=== PATIENT | male | born 1970 | race African-American/Black ===

== ENCOUNTER 2024-03-12 00:40 | Day surgery (SDC) | payer OTHER, SELFPAY ==
--- NOTE | 2024-03-05 13:41 | PC.NURSE ---
Report to the Doctors entrance to the right of the surgery green pavilion entrance located off [facility], at time _0945_ on date _[id number]_. Planned Procedure Time: _1145_. Time changes happen often and if your time is changed the preop area will call you the afternoon before. - You and your visitor will be asked to self-screen and do not enter if you have any COVID symptoms. - A mask is optional within the hospital at this time. Patients may have clear liquids (water, carbonated beverages, clear teas, apple juice) until 3 hours prior to surgery with a maximum of 20 ounces. - No food from midnight until time of surgery Take the following medications with a SIP of water the morning of surgery: ___Gabapentin, Duloxetine, and Ngjviyfvzaz-qzinxevudxtul-yvzggovjd DO NOT STOP ANY OF YOUR OTHER PRESCRIPTION MEDICATIONS PRIOR TO SURGERY ?EXCEPT THE FOLLOWING Medications to discontinue per physician None Date to take last dose Please no make-up, nail citizen of [place], hairspray, perfume, deodorant, or body powder the day of surgery. No jewelry (including any body piercings) or valuables the day of surgery, leave them at home. Please take a shower or bath the night before, or the morning of, surgery with an antibacterial soap. Wear comfortable, loose fitting clothing. - Jewelry must be removed prior to entering the operating room. Rings and piercings that are not removed may be cut off. - The hospital will not accept responsibility for valuables. - Please leave all valuables, including medications, at home the day of surgery. If you are going home after surgery, a licensed diesel pile driver operator must drive you home. - NO public transportation without another adult if you receive anesthesia. - We recommend that an adult stay with you for 24 hours following discharge. - We also recommend that you do not drive, make important decision, drink alcoholic beverages, or take any drugs that were not prescribed by your health care provider for at least 24 hours after your discharge time. Follow any additional instructions given to you from your surgeon. If you or anyone in your household have experienced Covid symptoms in the past week, please notify your surgeon or the nurse liaison at the phone number below for possible testing. Telephone instructions given to __Kelly___and asked if any additional questions and then verbalized understanding. Patient advised to call surgeon office or pre surgery nurse liaison [phone] if any additional questions.
[2024-03-06 11:19] VITALS: BMI 24.0
--- NOTE | 2024-03-11 18:03 | PM.IMHP ---
H&P: HPI History of Present Illness Date/Time: 03/11/24 18:03 Chief Complaint: Bilateral epistaxis Narrative: planned procedure Review of Systems Review of Systems: All systems reviewed & are unremarkable except as noted in HPI and below PMFSH Social History Social History Smoking status: Never smoker Living arrangements: incarcerated Meds Home Medications and Allergies Home Medications Medication Instructions Recorded Confirmed Type bictegravir 50 mg-emtricitabine 1 tablet PO DAILY 09/06/22 03/05/24 History 200 mg-tenofovir alafenam 25 mg tablet baclofen 10 mg tablet 10 mg PO DAILY 11/01/23 03/05/24 History duloxetine 60 mg capsule,delayed 60 mg PO DAILY 11/01/23 03/05/24 History release lidocaine 5 % topical patch 1 patch topical DAILY 11/01/23 03/05/24 History naproxen 250 mg tablet 250 mg PO BID PRN Pain 11/01/23 03/05/24 History Allergies Allergy/AdvReac Type Severity Reaction Status Date / Time fish derived Allergy Unknown Unknown Verified 03/05/24 13:36 Exam Narrative: bilateral tonsil a static vessels telangiectatic Assessment and Plan Assessment and plan (1) Epistaxis: Code(s): R04.0 - Epistaxis Status: Acute Assessment and Plan: Like the patient to hold naproxen if possible we need to get him in the OR bilateral nasal endoscopy bilateral controlled epistaxis can use the long handle the vena bipolar and suction Bovie.? Risks discussed bleeding infection need for further procedures failure to resolve symptoms septal perforation crusting routine follow-up.? Damage to any structure of the clavicle by myself damage to any structure induction and maintenance of anesthesia.? Patient voiced understanding and agreed.
[2024-03-12] VITALS (8 sets, daily range): BP systolic 95–113; BP diastolic 60–75; PULSE 69–97; RESP 10–16; TEMP 36.2–36.8; O2SAT 100
--- NOTE | 2024-03-12 07:17 | WPDHPUPDATE1 ---
History and Physical Update Update Date/Time: 03/12/24 07:17 History and Physical has been reviewed, including an updated exam of the patient. There are NO changes in the patient's condition. Risks, benefits, and alternatives have been discussed and questions answered. Patient agrees to proceed with procedure.
[2024-03-12] MEDS: LACTATED RINGERS 1,000 ML 30 ML IV CONT ×2 (10:28→13:09)
[2024-03-12] MEDS: ACETAMINOPHEN 500 MG TABLET 1000 MG PO (11:03)
--- NOTE | 2024-03-12 11:11 | WPDANESEPPF ---
Anes - Initial Pre Proc Eval Procedure: Operation Date: 03/12/24 10:45 Proposed Procedures p Bilateral Nasal Cautery, Bilateral Nasal Endoscopy - Jose F Corral MD Date/Time: 03/12/24 11:11 Surgeon: Jose F Corral MD Pre Op Diagnosis: Epitaxis Patient Data Age: 53 Gender: M Height: 1.88 m Weight: 71.9 kg Last Vital Signs Temp 98.3 F 03/12/24 09:43 Pulse 97 03/12/24 09:43 Resp 16 03/12/24 09:43 BP 97/65 L 03/12/24 09:43 Pulse Ox 100 03/12/24 09:43 O2 Del Method Room Air 03/12/24 09:43 Allergies Allergy/AdvReac Type Severity Reaction Status Date / Time fish derived Allergy Unknown Unknown Verified 03/05/24 13:36 Home Medications Medication Instructions Recorded Confirmed Type bictegravir 50 mg-emtricitabine 1 tablet PO DAILY 09/06/22 03/12/24 History 200 mg-tenofovir alafenam 25 mg tablet baclofen 10 mg tablet 10 mg PO DAILY 11/01/23 03/12/24 History duloxetine 60 mg capsule,delayed 60 mg PO DAILY 11/01/23 03/12/24 History release lidocaine 5 % topical patch 1 patch topical DAILY 11/01/23 03/12/24 History naproxen 250 mg tablet 250 mg PO BID PRN Pain 11/01/23 03/12/24 History gabapentin 600 mg tablet 900 mg PO DAILY 03/12/24 03/12/24 History Patient hx anesthesia problems: none Family hx anesthesia problems: none Results Review: All pre-operative results and documents have been reviewed as part of the pre-operative evaluation. [facility] Social History Social History Smoking status: Never smoker Living arrangements: incarcerated Anes - Eval Final PreProcedure Day of Procedure 03/12/24 11:11 Patient weight: normal Heart: regular rate and rhythm Lungs: clear to auscultation Airway: Mallampati scale class II and special considerations (Many small chips, none loose. ) Neurological: alert and oriented Last oral intake: >/= 8 hours ASA classification: II Emergent: no Anesthetic plan: proceed Anesthesia type and monitoring: general ETT and standard monitoring Results Review: All pre-operative results and documents have been reviewed as part of the pre-operative evaluation. Informed Consent: The patient's anesthetic plan and its attendant risks and benefits were discussed with the patient/family/POA. Questions were solicited and answers provided to the satisfaction of the patient/family/POA.
[2024-03-12] MEDS: ceFAZolin 2 GM/D5W 50 ML 2 GM/50 ML BAG IVPB (11:37)
[2024-03-12] MEDS: OXYMETAZOLINE HCL 0.05% NAS 15 ML BTL (*BKC) 1 SPRAY NASAL (11:49)
--- NOTE | 2024-03-12 13:42 | W.PM.PROC2 ---
Procedure Note - Detailed Date of Procedure 03/12/24 Pre-op Diagnosis Epitaxis, HHT Post-op Diagnosis Same Procedure Performed bilateral nasal endoscopy with cautery of telangiectatic vessels Surgeon Jose F Corral MD Anesthesia General Indications see above Findings multiple dozens of telangiectatic vessels consistent with HHT bleeding minimal Description of Procedure patient identified consent verified preop. Patient brought to the operating. Time-out performed. General anesthesia induced endotracheal tube secured. Patient prepped draped position procedure confirmed 2nd time-out performed. Nasal endoscopy performed some crusting was removed it was very apparent that this patient had dozens of telangiectatic lesions. These were cauterized with combination of bipolar and Bovie suction electrocautery setting of 10. Really none opposing too much very few on the anterior septum. Blood loss less than 10 cc. This was a bilateral procedure. Patient tolerated the procedure well no complications care the patient back to Anesthesiology. I performed all dictated portions of procedure. Estimated Blood Loss 5 Drains No Packing No Pathology None sent Complications No immediate complications Condition Stable Disposition PACU [facility] Billing Surgery - Charge Forward: Surgery Billing
[2024-03-12] MEDS: oxyCODONE HCL (*CRX) 5 MG TAB IR PO (14:44)
== END 2024-03-12 15:25 | disposition home or self-care (01) ==
PROVIDERS: Visit Provider Otolaryngology
PROC: (CPT 31238; principal; 2024-03-12 10:45)
DX: I78.0 Hereditary hemorrhagic telangiectasia (principal)
CPT/HCPCS: 31238; A9270; J0690; J1100; J2250; J2371; J2704; J3010; J7120